=== PATIENT | female | born 1950 | race African-American/Black ===

== ENCOUNTER → 2016-08-18 | Outpatient (CLI) | payer OTHER ==
[~2016-08-18] MED LIST: CHLORZOXAZONE500 MG PO; DIOVAN160 MG PO; FLEXERIL PO; HYDROCHLOROTH12.5 MG PO; HYDROCHLOROTHIA25 M1 PO; HYDROCODON-ACE1 EAC5 PO; IBUPROFEN 800800 M1; INDOMETHACIN SR75 M1 PO; LIPITOR 20 MG T20 M1 PO; MACROBID 100 M100 M1 PO; NORCO 5-325 TA1 EACH PO
--- NOTE | ~2016-08-18 | S ---
[facility] [place] [address] SURGICAL PATH RPT PROCEDURE Name: AMY BESS Room #: REG DORCAS Elo#: [id number] Admission: 08/18/16 Date of : 46 Discharge: Report #: [id number] Path Case #: [id number] PATHOLOGY REPORT COLLECTION DATE: 08/18/2016 RECEIVED DATE: 08/18/2016 SUBMITTING PHYS: Dr. Abdirizak Castellon OTHER PHYS: SPECIMEN(S) RECEIVED: A.Rt thyroid nodule bx x3 * * * * * * * * * * * * FINAL DIAGNOSIS: "Rt thyroid nodule bx x 3," needle biopsy: - Thyroid with mixed macro and microfollicular architecture. (see comment) COMMENT: Sections show needle core biopsy fragments of thyroid with a mixed macro and microfollicular architecture. The findings likely represent an adenomatous nodule. Classic cytologic features of papillary carcinoma are not identified. Of note, this is a small portion of a larger lesion and may not be entirely safety representative. Clinical and radiographic correlation is recommended. Please see also the fine needle aspiration ([id number]). (WILL:; d/t: 08/19/16) PATHOLOGIST: Hui Jensen M.D. REPORT ELECTRONICALLY SIGNED BY: Hui Jensen M.D. DATE/TIME: 08/19/2016 16:44 * * * * * * * * * * * * GROSS PATHOLOGY: The specimen is received in formalin, labeled "Amy Bess and right thyroid bx." Received is a 1.0 x 0.3 x 0.2 cm aggregate of blood-tinged, white-slater, rubbery, and irregular soft tissue fragments. The specimen is entirely submitted in cassette A1. (TTL; 08/18/2016) CLINICAL HISTORY: Right thyroid nodule INITIAL CPT CODE(S): A; [address] [address] SURGICAL PATH RPT PROCEDURE Name: AMY BESS Room #: REG CLI Elo#: [id number] Admission: 08/18/16 Date of : 46 Discharge: Report #: [id number] Path Case #: [id number] Professional services performed by [facility] at [address] , [place] [address] Technical services performed by [facility] at [address] [place] [address], [facility] [address] [address]. [facility] [address] [place] [address] PHONE: [phone] DIRECTOR: Rishi Hoffman M.D. * * * END OF REPORT * * *
--- NOTE | ~2016-08-18 | CNG ---
[facility] [place] [address] CYTO-NONGYN REPORT PROCEDURE Name: AMY BESS Room #: REG [facility].#: [id number] Admission: 08/18/16 Date of : 46 Discharge: Report #: [id number] Path Case #: [id number] CYTOPATHOLOGY REPORT COLLECTION DATE: 08/18/2016 RECEIVED DATE: 08/18/2016 SUBMITTING PHYS: Dr. Abdirizak Castellon OTHER PHYS: CLINICAL HISTORY: Right thyroid nodule. See also [id number]. SPECIMEN(S) RECEIVED: A.Fine needle aspiration, Right thyroid * * * * * * * * * * * * FINAL DIAGNOSIS: A. Thyroid, Right thyroid, Fine needle aspiration: BETHESDA CATEGORY II. SPECIMEN CONSISTS OF FOLLICULAR CELLS, HEMOSIDERIN-LADEN MACROPHAGES, COLLOID, AND BLOOD, FAVOR AN ADENOMATOID NODULE. COMMENT: Examination shows scattered groups of follicular cells forming macrofollicles, microfollicles and a few with Hurthle cell morphology. In addition, watery colloid and numerous macrophages are present in the background. Nuclear features of papillary thyroid carcinoma are not identified. These findings most likely represent an adenomatoid nodule. Please note sample represents a minute portion of a larger lesion and may not be claim representative. Correlate clinically and follow-up as indicated. The concurrent biopsy showed mixed macro-microfollicular architecture. Please see separate report ([id number]) for details. (IUV; 08/19/16) PATHOLOGIST: Miesha Nails M.D. REPORT ELECTRONICALLY SIGNED BY: Miesha Nails M.D. DATE/TIME: 08/19/2016 15:43 * * * * * * * * * * * * GROSS PATHOLOGY: A. Fine needle aspiration, Right thyroid: The specimen is labeled "Amy Bess" and consists of three air dried slides. Twenty mL of clear pink fluid in CytoLyt from the needle rinse is also submitted and One ThinPrep slide was prepared from this material. (clt 08.18.2016) GAS OPERATOR(S): QUYNH Tillman(ASCP) [facility] [place] [address] CYTO-NONGYN REPORT PROCEDURE Name: AMY BESS Room #: REG [facility].#: [id number] Admission: 08/18/16 Date of : 46 Discharge: Report #: [id number] Path Case #: [id number] INITIAL CPT CODE(S): A; 96859 Professional services performed by [facility] at [address], [place] [address] Technical [facility] performed by [facility] at [address] [place] [address]., [address], [place] [address]. [facility] [address] [place] [address], [address] [place] [address] PHONE: [phone] DIRECTOR: Rishi W. Dalton, M.D. * * * END OF REPORT * * *
== END | disposition home or self-care (01) ==
LOC: ULTRA 02:44
DX: E04.1 Nontoxic single thyroid nodule (principal)

== ENCOUNTER → 2016-09-29 | Outpatient (CLI) | payer OTHER ==
[~2016-09-29] MED LIST changes: +CYMBALTA30 MG PO
== END ==
LOC: CAT 12:06
DX: R19.01 Right upper quadrant abdominal swelling, mass and lump (principal)

== ENCOUNTER 2016-10-05 05:39 | Day surgery (SDC) | payer OTHER ==
[~2016-10-05] VITALS: Ht 160 cm; Wt 84.8 kg
--- NOTE | ~2016-10-05 | H ---
[facility] [place] [address] HISTORY AND PHYSICAL Name: BONITA CASTAÑEDA Room #: DEP [facility] M.R.#: [id number] Admission: 10/05/16 Attend Phys: Ry Blair MD Discharge: 10/06/16 Date of : 46 Report #: [id number] THIS REPORT FOR: //name// CC: Ry Castellon MD PREOPERATIVE DIAGNOSIS: Ventral hernia, right abdomen, possible spigelian hernia. HISTORY OF PRESENT ILLNESS: The patient is a 66-year-old who has been having pain in the right lower abdomen. The first episode was about a year ago when she was shopping in the [employer]. She had to stop what she was doing because of the pain. Recently, when she was cooking [employer] dinner, the pain came back. She could not stand anymore and had to sit down. The Easter episode was the longest that she has had Last week, the patient had an episode of pain when just lying in bed. She felt a bulge. First time she felt that. The knot is in the right side of the abdomen, the same place where the pain is. When the pain hits her, she is unable to do anything. She first thought it was activity related and then thought it was food related. No nausea, no vomiting. The pain lasted about 30 minutes to an hour. No prior surgery in this area. No family history of hernia. She has had some back problems, but this is different than her back pain. No difficulty urinating. She has some loose stool, but she thinks that is related to medication. I did feel a bulge on exam. Actually, I was able to feel it easier when she is lying down. I did go ahead and do a CT scan and the CT does show a hernia defect in the right margin of the rectus muscle. This is consistent with spigelian hernia. This contained fat tissue. The patient, because of the symptomatic nature, is recommended to have this repaired. PAST MEDICAL HISTORY: She has some back problems. She has high blood pressure. She has asthma. MEDICATIONS: Diclofenac, hydrochlorothiazide, valsartan, atorvastatin, ProAir HFA. ALLERGIES: She is allergic to LISINOPRIL. SOCIAL HISTORY: The patient does not smoke. She also does not drink. FAMILY HISTORY: Unremarkable. REVIEW OF SYSTEMS: Unremarkable. No chest pain, shortness of breath or wheezing at this point. No numbness. PHYSICAL EXAMINATION: GENERAL: The patient is a well-developed, well-nourished female. [place] [address] HISTORY AND PHYSICAL Name: BONITA CASTAÑEDA Room #: [facility]..#: [id number] Admission: 10/05/16 Attend Phys: Ry Blair MD Discharge: 10/06/16 Date of : 46 Report #: [id number] acute distress. She is moderately obese. HEENT: Her pupils react to light. Extraocular muscles are intact. Oropharynx clear. NECK: Soft and supple, no masses. LUNGS: Clear. HEART: Regular rate and rhythm. No murmur or gallop. ABDOMEN: Soft and no mass, no ascites. IMPRESSION AND PLAN: The patient has a hernia in the right lower abdomen. This to me is superior to the internal ring and I do think this is an inguinal hernia. This area is consistent with a spigelian defect. The CT scan does show this hernia easily and it does go along with a spigelian hernia. Because of the pain that she has had in this area, repair is recommended. Laparoscopic approach is recommended. Use of a mesh was discussed. The patient understands the detail of the procedure and wishes to proceed. Risk of bleeding, infection, mesh infection was discussed. The patient understands. <ELECTRONICALLY SIGNED> By: Ry Blair MD 10/07/16 1713 2150 2256 Ry Blair MD /nt
--- NOTE | ~2016-10-05 | O ---
[facility] [place] [address] OPERATIVE REPORT Name: BONITA CASTAÑEDA Room #: DEP [facility]..#: [id number] Admission: 10/05/16 Attend Phys: Ry Blair MD Discharge: 10/06/16 Date of : 46 Report #: [id number] THIS REPORT FOR: //name// CC: Ry Castellon MD PREOPERATIVE DIAGNOSIS: Right ventral hernia/Spigelian hernia. POSTOPERATIVE DIAGNOSIS: Right ventral hernia/Spigelian hernia. PROCEDURES PERFORMED: Laparoscopic repair of right ventral Spigelian hernia. ANESTHESIA: General. SURGEON: Ry Blair M.D. COMPLICATIONS: None. ESTIMATED BLOOD LOSS: 5 mL. DESCRIPTION OF PROCEDURE: With the patient under general anesthesia, IV antibiotic was administered. Morrison catheter was placed. Abdomen was prepped and draped in sterile fashion. Ioban was also used. A cut-down incision for the 11-mm port was made in the left upper quadrant, little bit above the level of the umbilicus. I felt that this will give me the best view. This was left at the midline about a couple of inches. Care was to avoid the inferior epigastric vessels. The anterior fascia was identified. The anterior rectus sheath was incised. An 0 Vicryl suture was placed on the fascia for retraction. The posterior sheath was then grasped. The posterior sheath was then opened under visualization. Again, 0 Vicryl suture placed on the fascia edges for retraction. An 11-mm trocar was placed directly into the peritoneal cavity under visualization. The balloon was inflated. CO2 was placed. A 10-mm 30-degree scope was placed. The patient does have a well-identified hernia in the right lower quadrant. The peritoneum is puckered in it. There is some serous fluid in the hernia, same as was seen on the CT scan. A 5-mm trocar was placed about the epigastric midline area and then another 5-mm trocar was placed in the left lower quadrant about an inch from the midline. The peritoneum was divided cephalad to the hernia defect. The peritoneum was then taken down. The hernia content was visualized. There was 3-cm fatty tissue that went into the defect. There was some more fat inferiorly. These were all reduced. The inferior epigastric artery was identified slightly inferior to this and running from a lateral medial position. The round ligament was identified and it is inferior located. This is not an indirect inguinal hernia. I can see the oblique muscle here. I think I am pretty sure that I am seeing external oblique fascia tissue on the other side of the fascia defect. This is consistent with the Spigelian hernia. The hole is about 2 cm. A Ventralex [address] [address] OPERATIVE REPORT Name: BONITA CASTAÑEDA Room #: DEP [facility] M.R.#: [id number] Admission: 10/05/16 Attend Phys: Ry Blari MD Discharge: 10/06/16 Date of : 46 Report #: [id number] patch was used. This is in diameter. The strap of the Ventralex was trimmed off. The Ventralex was moistened with saline. An 0 PDS suture was placed on the ends of the strap. This was then placed through the 11-mm trocar. Suture retrieval was placed through the skin and subcutaneous tissue through the external oblique through the opening the fascia. Through the fascia defect, the suture was grabbed and the patch was pulled up against the wall. The patch was then tacked first in the inner part of the mesh at 12, 3, 6 and 9 o'clock position. This was around the edge of the hole. Then, the outer part of the mesh was tacked along the edge. The mesh was held in place well. No tacks were placed inferiorly where the epigastric vessel was located. The peritoneum was able to be brought up over the mesh material and then tacked cephalad to the mesh, covering the mesh. No bleeding was identified. Trocars were removed. CO2 was evacuated. The fascia defect at the cut-down side was closed with 0 PDS [id number] times 2 and the posterior layer in the [id number]-rl-[id number] times 2 in the anterior rectus sheath. <ELECTRONICALLY SIGNED> By: Ry Blair MD 10/07/16 1713 1526 1610 Ry Blair MD /nt
--- NOTE | ~2016-10-05 | EKG ---
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
[2016-10-05 10:49] LABS: HEMATOCRIT 33.7 % (37.0-47.0); HEMOGLOBIN 11.3 gm/dL (12.0-15.0)
[2016-10-05 11:15] VITALS: BP 140/92
[2016-10-05 19:54] VITALS: BP 90/58
[2016-10-05 23:46] VITALS: BP 127/80
[2016-10-06 03:30] VITALS: BP 130/73
[2016-10-06 08:00] VITALS: BP 129/72
[2016-10-06] MEDS ORDERED: CYCLOBENZAPRINE10 MG PO (12:49)
[2016-10-06] MEDS ORDERED: NORCO 5-325 TA1 EACH PO (12:49)
[2016-10-06 14:05] VITALS: BP 129/72
== END 2016-10-06 15:52 | disposition home or self-care (01) ==
LOC: TBA 05:39 → OR 05:39 → TBA 05:40 → OR 09:56 → 4N 15:58 → OR 16:21
PROVIDERS: Surgery
DX: K43.9 Ventral hernia without obstruction or gangrene (principal); J45.909 Unspecified asthma, uncomplicated
CPT/HCPCS: 50010; 50101; 50249; 50386; 50455; 50555; 50621; 50848; 50886; 53307; 53310; 53335; 54022; 54118; 56462; 56525; 56526; 57092; 62110; 62900; 70005

== ENCOUNTER → 2016-12-15 | Outpatient (CLI) | payer OTHER ==
[~2016-12-15] MED LIST changes: +CYCLOBENZAPRINE10 MG PO
== END ==
LOC: NUC 09:06
DX: M81.0 Age-related osteoporosis without current pathological fracture (principal)

== ENCOUNTER → 2017-03-23 | Outpatient (CLI) | payer OTHER | LOC: RAD 09:53 | DX: Z12.31 Encounter for screening mammogram for malignant neoplasm of breast (principal) ==

== ENCOUNTER → 2018-04-12 | Outpatient (CLI) | payer OTHER | LOC: RAD 09:54 | DX: Z12.31 Encounter for screening mammogram for malignant neoplasm of breast (principal) ==

== ENCOUNTER → 2018-10-11 | Outpatient (CLI) | payer OTHER | LOC: ULTRA 09:29 | DX: K76.89 Other specified diseases of liver (principal) ==

== ENCOUNTER → 2019-03-26 | Outpatient (CLI) | payer OTHER | LOC: NUC 10:38 | DX: M81.0 Age-related osteoporosis without current pathological fracture (principal); Z78.0 Asymptomatic menopausal state ==

== ENCOUNTER → 2019-04-20 | Outpatient (CLI) | payer OTHER | LOC: RAD 12:36 | DX: Z12.31 Encounter for screening mammogram for malignant neoplasm of breast (principal) ==

== ENCOUNTER → 2019-11-16 | Outpatient (CLI) | payer OTHER ==
[~2019-11-16] MED LIST changes: +COZAAR100 MG PO; +FISH OIL 1,0001 EAC9 PO; +FOSAMAX 70 MG T70 MG PO; +LORCET 5-325 M1 EACH PO; +MULTI VITAMIN1 EACH PO; +VITAMIN B COMP1 EACH PO
[2019-11-16 10:03] LABS: CREATININE 1.1 mg/dL (0.6-1.0)
== END ==
LOC: CAT 08:47
PROVIDERS: ATTEND Surgery
DX: N28.1 Cyst of kidney, acquired (principal); J47.9 Bronchiectasis, uncomplicated; K76.89 Other specified diseases of liver; K76.0 Fatty (change of) liver, not elsewhere classified

== ENCOUNTER → 2019-11-29 | Day surgery (SDC) | payer OTHER ==
[~2019-11-29] VITALS: Ht 154.9 cm; Wt 79.4 kg
--- NOTE | ~2019-11-29 | O ---
[facility] [place] [address] OPERATIVE REPORT Name: BONITA CASTAÑEDA Room #: REG [facility]..#: [id number] Admission: 11/29/19 Attend Phys: Ry Blair MD Discharge: Date of : 46 Report #: [id number] THIS REPORT FOR: cc: Abdirizak Castellon,Ry Meza MD ~ CC: Ry Castellon DATE OF SERVICE: 11/29/2019 PREOPERATIVE DIAGNOSIS: Large lipoma in the left upper back with pain on her left side. POSTOPERATIVE DIAGNOSIS: Large lipoma in the left upper back with pain on her left side. PROCEDURE PERFORMED: Excision of large left back lipoma measuring 12 x 9 x 2.5 cm. SURGEON: Ry Blair MD ANESTHESIA: General anesthesia. COMPLICATIONS: None. ESTIMATED BLOOD LOSS: 5 mL. PROCEDURE NOTE: With the patient in the lateral position with the left side up, the left back was prepped and draped in sterile fashion. Timeout was performed. A 0.25% Marcaine was used to anesthetize the skin and subcutaneous tissue. After incising through the skin, the incision about 2.5 inches was made. After incising through the skin and subcutaneous tissue, the superficial fascia was identified. Underneath the superficial fascia, a well-formed lipoma was found. Lipoma was dissected free from the surrounding tissue with cautery and also some blunt dissection. The lipoma was then entirely removed. Did not violate the surface of the lipoma, posteriorly was stuck a little bit on the fascia. There is a superficial skin bleeder that was suture ligated with 3-0 PDS. Lipoma was sent for pathology. Irrigation was performed. No other bleeding was identified. The superficial fascia was closed with 3-0 PDS. Skin was closed with 4-0 PDS in running subcuticular fashion, Dermabond, 4 x 4, OpSite used for [facility] [address] [place] [address] OPERATIVE REPORT Name: MADDYBONITA BRYANT Room #: REG [facility].#: [id number] Admission: 11/29/19 Attend Phys: Ry Blair MD Discharge: Date of : 46 Report #: [id number] dressing. The patient tolerated the procedure well and was taken to recovery room. By: 42 48 Ry Blair MD /nt
--- NOTE | ~2019-11-29 | H ---
[facility] [place] [address] HISTORY AND PHYSICAL Name: BONITA CASTAÑEDA Room #: PRE [facility] M.R.#: [id number] Admission: Attend Phys: Ry Blair MD Discharge: Date of : 46 Report #: [id number] THIS REPORT FOR: cc: Abdirizak Castellon,Ry Meza MD ~ CC: Ry Castellon MD DATE OF SERVICE: 11/29/2019 PREOPERATIVE DIAGNOSIS: Mass in the left back consistent with a huge lipoma. HISTORY OF PRESENT ILLNESS: The patient started to have pain. She thought that the patient's pain is in the left abdomen. It is located in the side and also flank area, not quite into the main body of the abdomen. This started a few weeks ago. She was concerned she actually stopped eating, cutdown on her eating. Some constipation. No nausea or vomiting. No difficulty urinating. Seems to be getting worse with time. She says she is having difficulty walking and rising up. The pain seems to be worse at the latter part of the day. She noticed a lump in the left back area. The pain is still over the left side. She had a colonoscopy a year before last. She has some pain in the left side and a negative sonogram. The patient had a spigelian hernia repair on the right in 2017 by myself. The patient has been getting injections for SI joint inflammation. 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 There is a mass that I felt, which is consistent with a huge lipoma, some of her pain could be due to that, but she is complicated and that there are other issues mainly in her SI joint. The patient I think would benefit from having this big lipoma removed. I am not sure all her symptoms will resolve. The patient wants to proceed. PAST MEDICAL HISTORY: She is healthy. No heart disease, lung disease, diabetes. MEDICATIONS: None. ALLERGIES: She is allergic to LISINOPRIL. FAMILY HISTORY: Diabetes and high blood pressure in stepdad. Mother had polymyositis. No cancer in the family. SOCIAL HISTORY: The patient does not smoke or drink. REVIEW OF SYSTEMS: No chest pain, shortness of breath or palpitation. [facility] [address] [place] [address] HISTORY AND PHYSICAL Name: BONITA CASTAÑEDA Room #: PRE [facility] M.R.#: [id number] Admission: Attend Phys: Ry Blair MD Discharge: Date of : 46 Report #: [id number] PHYSICAL EXAMINATION: GENERAL: The patient is moderately obese female, in no acute distress. HEENT: Pupils react to light. Extraocular muscles are intact. NECK: Soft and supple, no masses. LUNGS: Clear to auscultation. HEART: Regular rate and rhythm. No murmur or gallop. ABDOMEN: Soft and no recurrent hernia in the right side. No hernia detected on the left spigelian area or inguinal area. No guarding or rigidity. The patient does have a large size lipoma in the left lateral back. This is moderately tender to palpation. EXTREMITIES: No cyanosis, clubbing or edema. IMPRESSION: The patient is a 69-year-old with a left back mass consistent with a lipoma. She has left-sided pain. She does have previous history of SI joint inflammation and scarring, been getting injections. The pain now is a little bit higher, could be from the lipoma and it would be difficult to tell. Because of the size of the mass, I think she would benefit from having this excised. The patient is here for procedure. Risk of bleeding, infection was discussed. The patient understands and wishes to proceed. By: 0816 0843 Ry Blair MD /nt
[2019-11-29 11:51] LABS: HEMATOCRIT 35.4 % (37.0-47.0); HEMOGLOBIN 11.7 gm/dL (12.0-15.0)
[2019-11-29 12:04] LABS: CALCIUM 9.4 mg/dL (8.5-10.1); CREATININE 1.1 mg/dL (0.6-1.0); POTASSIUM 3.9 mmol/L (3.5-5.1)
[2019-11-29 12:30] VITALS: BP 160/96
[2019-11-29 14:56] VITALS: BP 160/96
--- NOTE | 2019-12-03 07:24 | EKG ---
[facility] [place] [address] ELECTROCARDIOGRAM REPORT Name: BONITA CASTAÑEDA Room #: REG [facility]..#: [id number] Admission: 11/29/19 Attend Phys: Ry Blair MD Discharge: Date of : 46 Report #: [id number] THIS REPORT FOR: cc: Abdirizak Castellon,Aldo Diego MD 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 : 1950 Requested By: Ry Blair Order Number: [id number] MD: Aldo Dorsey Measurements Intervals [place] Rate: 74 P: 69 [place]: 146 QRS: 4 QRSD: 91 T: 41 QT: 384 QTc: 426 Interpretive Statements Sinus rhythm No significant abnormality Compared to ECG 10/05/2016 10:54:20 No significant changes Electronically Signed On 12-03-2019 7:24:12 CDT by Aldo Dorsey [email or web address] <ELECTRONICALLY SIGNED> By: Aldo Dorsey MD, [facility] 12/03/19 0724 1214 1214 Aldo Dorsey MD, [facility] /EPI
--- NOTE | 2019-12-04 12:06 | PATH ---
[facility] [address] [place] [address] PATHOLOGY RPT PROCEDURE Name: AMY BESS Room #: REG [facility] M.R.#: [id number] Admission: 11/29/19 Date of : 46 Discharge: Report #: [id number] Path Case #: [id number] [facility] Accession Number: [id number] . 01 Material submitted: . back - LEFT BACK LIPOMA. Modifiers: left . 01 Clinical history: . Lipoma . 02 Diagnosis: Soft tissue "left back", excision: - Mature lobulated adipose tissue, consistent with lipoma. (MLK:ariadne; 12/03/2019) S 12/03/2019 1410 Local . 02 Electronically signed: . Mahnaz Ling MD, Pathologist NPI- [id number] . 01 Gross description: . The specimen is received in formalin, labeled "Amy Bess, left back lipoma". Received is a well-circumscribed, partially encapsulated segment of yellow-slater lobulated tissue measuring 10.6 x 8.1 x 3.6 cm in greatest dimensions. Sectioning reveals bright yellow cut surfaces with no grossly distinct nodules or lesions. The specimen is submitted representatively in cassette A1 and A2. (CAA; 11/29/2019) QAC/QAC 11/29/2019 1903 Local . 02 Pathologist provided ICD-10: D17.9 . 02 CPT . 212851 Specimen Comment: A courtesy copy of this report has been sent to [phone], [phone] Specimen Comment: [id number] Specimen Comment: Report sent to / DR YAN Performed at: [address], [place] [id number] MD Prasad Smith MD Phone: [phone] Performed at: [address] [id number] MD Miesha Nails MD Phone: [phone]
== END | disposition home or self-care (01) ==
LOC: OR 11:14
PROVIDERS: ATTEND Surgery
DX: D17.1 Benign lipomatous neoplasm of skin and subcutaneous tissue of trunk (principal); M54.9 Dorsalgia, unspecified; I10 Essential (primary) hypertension; E78.5 Hyperlipidemia, unspecified; Z98.890 Other specified postprocedural states; Z79.899 Other long term (current) drug therapy; Z11.59 Encounter for screening for other viral diseases; Z87.891 Personal history of nicotine dependence; Z88.8 Allergy status to other drugs, medicaments and biological substances; Z82.49 Family history of ischemic heart disease and other diseases of the circulatory system; Z83.3 Family history of diabetes mellitus
CPT/HCPCS: 50010; 50101; 50386; 50417; 54118; 56526; 56527; 62110; 62900; 70005

== ENCOUNTER → 2020-01-16 | Outpatient (CLI) | payer OTHER | LOC: MRI 12:22 | PROVIDERS: ATTEND Neuromusculoskeletal Medicine & OMM | DX: M47.26 Other spondylosis with radiculopathy, lumbar region (principal); M48.061 Spinal stenosis, lumbar region without neurogenic claudication; M47.814 Spondylosis without myelopathy or radiculopathy, thoracic region; M25.78 Osteophyte, vertebrae ==

== ENCOUNTER → 2020-05-14 | Outpatient (CLI) | payer OTHER | LOC: RAD 13:02 | PROVIDERS: ATTEND Neuromusculoskeletal Medicine & OMM | DX: Z12.31 Encounter for screening mammogram for malignant neoplasm of breast (principal) ==